=== PATIENT | male | born 2000 | race Two or more races ===

== ENCOUNTER 2024-09-09 17:21 | Emergency (ER) | payer MEDICAID, SELFPAY ==
[2024-09-09 17:39] VITALS: BP 137/79; PULSE 77; RESP 18; TEMP 36.8; O2SAT 99; BMI 21.2
--- NOTE | 2024-09-09 17:43 | PD.EDRME ---
Rapid Medical Screening Exam RME Arrival date/time: 09/09/24 17:21 24-year-old male presents emergency department complaints of acute onset of left eye pain last night Chief Complaint: Eye Problems Time Seen by Provider: 09/09/24 17:27 Vital signs: Vital Signs Temperature 98.2 F 09/09/24 17:39 Pulse Rate 77 09/09/24 17:39 Respiratory Rate 18 09/09/24 17:39 Blood Pressure 137/79 H 09/09/24 17:39 Pulse Oximetry (%) 99 09/09/24 17:39 Oxygen Delivery Method Room Air 09/09/24 17:39
[2024-09-09 20:59] VITALS: BP 132/79; PULSE 64; RESP 19; TEMP 36.4; O2SAT 99
[2024-09-09] MEDS: FLUORESCEIN SOD 1 MG STRP LEFT EYE (22:33)
--- NOTE | 2024-09-09 22:33 | EDNOTE_ITS ---
ED Eye Problem RME/HPI General Chief complaint: Eye Problems Stated complaint: left eye pain and redness Time Seen by Provider: 09/09/24 17:27 Arrival date/time: 09/09/24 17:21 Patient comes into the emergency room with complaints of left eye pain and redness. Patient reports that he was sitting at his computer and started to have eye pain.. Patient then also reports that he used to have a longer hair and recently just shaved his hair off to get his hair out of his face. Patient denies any past medical history. RME / HPI RME / HPI Narrative: 09/09/24 17:21 24-year-old male presents emergency department complaints of acute onset of left eye pain last night Related Data Previous Rx's ?Medication ?Instructions ?Recorded erythromycin 5 mg/gram (0.5 %) eye 0.5 inch ophthalmic (eye) QID #3.5 09/09/24 ointment grams Allergies Allergy/AdvReac Type Severity Reaction Status Date / Time NKA Allergy Unknown Uncoded 05/31/03 22:57 Review of Systems Review of Systems Systems Reviewed: All systems reviewed, normal except as documented Past Medical History Past Medical History Comments PMH COMMENT: denies pmh ED Exam General General appearance: Present alert and in no apparent distress Head Head exam: Present atraumatic Eye Eye exam: Present PERRL, EOMI and other (left eye conjuctiva slightly erythemic ) ENT ENT exam: Present normal exam, normal oropharynx and mucous membranes moist Neck Neck exam: Present normal inspection, full ROM and trachea midline Chest Chest inspection: Present normal inspection and symmetric chest wall rise Respiratory Respiratory exam: Present normal lung sounds bilaterally Cardiovascular Cardiovascular exam: Present regular rate and normal rhythm Abdominal Exam Abdominal exam: Present soft Extremities Exam Extremities exam: Present normal inspection and full ROM Back Exam Back exam: Present normal inspection and full ROM Neurological Exam Neurological exam: Present alert, oriented X3 and CN II-XII intact Psychiatric Psychiatric exam: Present normal affect and normal mood Skin Skin exam: Present warm, dry, intact and normal color Course Quality Measures none Orders Category Date Time Status ED Eye Irrigation ONCE Care 09/09/24 17:43 Completed Seg[place] Lamp to Bedside X1 Care 09/09/24 17:43 Completed Erythromycin Op Oint 0.5% Med 09/09/24 22:41 Discontinued 1 gm LEFT EYE X1 ONE Fluorescein Sodium [[id number]] Med 09/09/24 17:43 Discontinued 1 mg LEFT EYE X1 ONE TETRACAINE Op Georgette 0.5% [Pontocaine Op Georgette 0.5%] Med 09/09/24 17:43 Discontinued 1 drop LEFT EYE X1 ONE Vital Signs Vital signs: Vital Signs Temperature 98.2 F 09/09/24 17:39 Pulse Rate 77 09/09/24 17:39 Respiratory Rate 18 09/09/24 17:39 Blood Pressure 137/79 H 09/09/24 17:39 Pulse Oximetry (%) 99 09/09/24 17:39 Oxygen Delivery Method Room Air 09/09/24 17:39 Procedures -ED Segovia Lamp Exam Left eye: Flourescein uptake:: Yes Seg[place]ia Lamp Findings: Other (Patient has an approximately 2 mm x 2 mm uptake AT 6 o'clock position on the iris not overlying pupil, no foreign body, no Sidel sign, no conjunctival edema, no cloudiness, REDNESS TO CONJUNCTIVA OF LEFT EYE ) Additional comments: Patient reports that hair was irritating the eye previously. Patient recently shaved his head. TONOPEN USED AND BILATERAL PRESSURES 20 ON RIGHT AND 21 TO LEFT Eye MDM Narrative MDM Narrative:: Spoke to patient at length the importance of following up with ophthamologist tomorrow. Pt told if he can not find follow up he may come back to ED for a recheck. Pt verbalized understanding Patient data External records reviewed:: [facility] previous records Clinical information provided by:: patient Social determinants that could affect healthcare access:: none Patient has the following chronic illnesses:: denies How is presenting disease/condition affected by chronic disease/condition?: no chronic disease Evaluation data The following diagnostics were reviewed and interpreted by me:: other (specify) (segovia lamp) Lab and/or radiology exams considered but not ordered:: none Interpretation Summary: see note Medications / Prescriptions Medications or Prescriptions considered but not ordered:: none Medication administrations:: Medication Administration History Discontinued Medications Erythromycin (Erythromycin Op Oint 0.5% 1 Gm Packet) 1 gm LEFT EYE X1 ONE Stop: 09/09/24 22:42 Last Admin: 09/09/24 22:48 Dose: 1 gm Documented By: GG Co-signed By: ART Fluorescein Sodium (Fluorescein Sod 1 Mg Strp) 1 mg LEFT EYE X1 ONE Stop: 09/09/24 17:44 Last Admin: 09/09/24 22:33 Dose: 1 mg Documented By: AKILA Comments: not able to scan discarted before by provider. verified with Mayra FOY. Tetracaine HCl (Tetracaine Pf Op Georgette 0.5% 4 Ml Drpette) 1 drop LEFT EYE X1 ONE Stop: 09/09/24 17:44 Last Admin: 09/09/24 22:34 Dose: 1 drop Documented By: CB see mar Consultations Consultation(s) initiated? (list below): No Diagnosis Eye Problem Differential Diagnosis: corneal abrasion, conjunctivitis, subconjunctival hemorrhage and corneal ulcer Most likely diagnosis given after review of the tests above:: corneal abrasion Admission Indicated Admission indicated?: not indicated Admission Request Was there a request for admission?: No Disposition Plan Disposition Plan: Discharge Discharge Attestation Discharge Attestation: The patient and all family members were given an opportunity to ask questions and understood the discharge instructions. Discharge instructions specifically effects, indications for sooner follow up or return to the emergency department, and the expected course of current diagnosis. Patient condition: Stable Discharge Plan Plan Patient Disposition: HOME (Self Care) Patient condition on transfer: Stable Prescriptions/Referrals Prescriptions/Med Rec: New erythromycin 5 mg/gram (0.5 %) ointment 0.5 inch ophthalmic (eye) QID Qty: 3.5 0RF Referrals: Ramón Hollingsworth PA-C [Primary Care Provider] - In 1 week Problem List Clinical Impression: Corneal abrasion Patient/Caregiver Discharge Instructions Discharge Activity: activity as tolerated Education Materials: ED Corneal Abrasion Additional Instructions: Spoke to patient at length about following up with an eye doctor. If patient is not able to get follow-up with eye doctor on 09/11/2024 patient told to come back to the emergency room for recheck. Patient told to come back if symptoms change or worsen. Take antibiotics as prescribed. Print Language: Faroese Stand Alone Forms: [employer] Award Info., Patient Portal Info Letter RILEY/PERNELL Supervising Physician RILEY/PERNELL Supervising Physician: GABRIEL
[2024-09-09] MEDS: TETRACAINE PF OP SOL 0.5% 4 ML DRPETTE 1 DROP LEFT EYE (22:34)
[2024-09-09] MEDS: Erythromycin Op Oint 0.5% 1 GM PACKET LEFT EYE (22:48)
== END 2024-09-09 22:55 | disposition home or self-care (01) ==
PROVIDERS: Emergency Provider Emergency Medicine; PCP Physician Assistant Medical
DX: S05.02XA Injury of conjunctiva and corneal abrasion without foreign body, left eye, initial encounter (principal); X58.XXXA Exposure to other specified factors, initial encounter
CPT/HCPCS: 99283; A9270